=== PATIENT | female | born 1985 | race Caucasian/White ===

== ENCOUNTER 2019-08-24 10:26 | Day surgery (SDC) | payer OTHER ==
[2019-08-23 10:52] VITALS: BMI 35.4
[~2019-08-24 10:26] MED LIST: Dexamethasone 20 MG/5 ML VIAL ONE; Lidocaine 1% PF 5 ML VIAL ONE; Ondansetron PF 4 MG/2 ML Vial ONE; PROPOFOL 200 MG/20 ML VIAL ONE; Rocuronium Bromide 10 MG/ML (10ML VIAL) ONE; Succinylcholine Chloride 20 MG/ML 10 ml SYRINGE FS ONE
[2019-08-24] MEDS ORDERED: Fentanyl 100 MCG/2 ML VIAL ONE ×2 (11:04→16:35)
[2019-08-24] MEDS ORDERED: Lidocaine 1% (PF) 30 ML VIAL ONE ×2 (11:49→15:22)
[2019-08-24] MEDS ORDERED: Famotidine/PF 20 mg/2ml Vial ONE (12:01)
[2019-08-24 12:05] LABS: #Basophils 0.1 thou/uL (0.0-0.2); #Eosinphils 0.1 thou/uL (0.0-0.7); #Lymphocytes 2.8 thou/uL (1.20-3.40); #Monocytes 0.5 thou/uL (0.11-0.59); #Neutrophils 7.2 thou/uL (1.40-6.50); %Basophils 0.5 % (0.0-1.0); %Eosinophils 1.3 % (0.0-10.0); %Lymphocytes 26.1 % (21.0-51.0); %Monocytes 4.6 % (0.0-10.0); %Neutrophils 67.4 % (42.0-75.0); Hemoglobin 12.8 g/dL (12.0-16.0); Mean Corpuscular Hemoglobin 30.5 pg (27.0-31.0); Mean Corpuscular Volume 89.5 fL (78.0-98.0); Mean Platelet Volume 7.9 fL (7.4-10.4); Platelet Count 234 thou/uL (130-400); RBC Distribution Width 12.3 % (11.5-14.5); Red Blood Cell (RBC) Count 4.21 mill/uL (4.20-5.40); White Blood Cell (WBC) Count 10.7 thou/uL (4.8-10.8)
[2019-08-24] MEDS ORDERED: Promethazine HCl 25 MG/ML VIAL ONE (16:51)
--- NOTE | 2019-08-25 02:16 | OP ---
DATE OF PROCEDURE: 08/24/2019 PREOPERATIVE DIAGNOSES: 1. History of cervical incompetence. 2. Intrauterine at 15 weeks. POSTOPERATIVE DIAGNOSES: 1. History of cervical incompetence. 2. Intrauterine at 15 weeks. PROCEDURES PERFORMED: Cervical cerclage, Messina style with Mersilene tape. ANESTHESIA: General. ESTIMATED BLOOD LOSS: Less than 50 mL. COMPLICATIONS: None. SPECIMENS: None. COUNTS: Correct. DESCRIPTION OF PROCEDURE: Ms. Molly Yang is a 33-year-old female, G4, P0 female with an intrauterine at approximately 15 weeks gestation with a history of cervical incompetence as evidenced by a 19-week loss, but the patient presenting with leakage of fluid and already cervical dilation. The patient was counseled to the benefits and risks of a cervical cerclage, including the benefit of prolonged , risk of premature rupture of membranes, labor, damage to bowel or bladder, bleeding, and the patient expressed understanding of these potential complications and benefits and desired to proceed. The patient was taken to the operating room and placed under general anesthesia without difficulty. She was placed in a dorsal lithotomy position in [facility]. She was prepped and draped in normal sterile fashion. Attention was placed vaginally with a weighted vaginal speculum and a Alfredo and two right-angle retractors to identify the cervix. Cervix was noted to be very well supported and not easily accessible. After evaluation of the cervix, the cervix was noted to be closed and firm. The vesicovaginal reflection was identified. The visible portion of the cervix was measured and visually the markings were made mentally as to where the cerclage should be placed. A double needled Mersilene tape was then used with suture being placed from 5 o'clock to 4 o'clock, 10 o'clock to 11 o'clock, 1 o'clock to 2 o' clock and 4 o'clock to 5 o'clock with the knot placed at 12 o'clock. A suture was then cinched down for good closure, and air knot was created for later visualization. Of note, during the case, at the time of the initial stitch, there was an inadvertent stick through the vaginal wall posteriorly with the misidentification of it being the lateral side of the cervix. When this was identified, the suture was removed. At the end of the case, a digital evaluation of the rectum was made with some concern question whether this was placed in the rectum with a finger digitally identifying the wall of the rectum and a retraction being used to identify the cervix and the location of this bulge in the posterior vagina. It was clearly identified that the rectum was not within the niko of the previous malplaced suture. With that confirmation made, the procedure was completed and the patient was taken out of lithotomy position and extubated and taken to recovery room in stable condition. Job ID: [id number] MTDD
== END 2019-08-24 18:30 | disposition home or self-care (01) ==
LOC: SDC 10:26
PROVIDERS: ATTEND Obstetrics & Gynecology
PROC: 0UVC7ZZ Restriction of Cervix, Via Natural or Artificial Opening (ICD-10-PCS; principal; 2019-08-24)
DX: O34.32 Maternal care for cervical incompetence, second trimester (principal); O09.292 Supervision of pregnancy with other poor reproductive or obstetric history, second trimester; Z3A.15 15 weeks gestation of pregnancy
CPT/HCPCS: 85025; J1100; J2001; J2405; J2550; J2704; J3010; S0028

== ENCOUNTER 2019-09-17 22:00 | Day surgery (SDC) | payer OTHER ==
[2019-09-17 22:42] VITALS: BMI 38.4
[2019-09-17] MEDS ORDERED: hydrALAZINE 20 MG/ML VIAL SLOW IVP PRN (23:18)
[2019-09-17 23:52] LABS: Bilirubin Negative (Negative); Blood, Urine Trace (Negative); Clarity Clear (Clear); Glucose, Urine (Dipstick) Normal (Negative); Leukocyte Negative Leu/uL (Negative); Nitrite Negative (Negative); Protein, Urine (Dipstick) 20 mg/dL (Neg-Trace); RBC/HPF 0-3 HPF (0-3); Squamous Epithelial 0-3 HPF (0-3); Urobilinogen Normal mg/dL (Less than 2)
[2019-09-17 23:55] LABS: Bacteria/HPF 1+ HPF (None Seen)
[2019-09-17 23:56] LABS: Urine Culture Reflex Yes Yes
--- NOTE | 2019-09-18 03:57 | PDOC.FPROB ---
FMR OB H&P: HPI - History of Present Illness Chief Complaint: Low back pain Indentification: 33 year old at 19.2 wks History of Present Illness: 33 year old at 19.2 wks presents with lower back pain for the last two days. She states that it is consistent pain in the mid lower back. The pain is positional, and certain positions do seem to relieve the pain. Patient has had several early second trimester losses. Her last she attempted IVF. This was conceived naturally. Patient had cerclage placed in July. She also started Marielos injections 3 weeks ago. Patient denies vaginal bleeding , vaginal discharge, LoF, or contractions. She states that this pain does not feel like the PTL pain she has experienced in the past. Patient does have a history of recurrent UTI's. Patient endorses movement. Primary Care Physician: William FMR OB H&P: Current - Care : 4 Para: 0030 Gestational age: 19.2 wks Due date: 02/10/2020 FMR OB H&P: History - Past Medical History PMH: Denies any significant PMH - OB History OB History: SAB x3 Cerclage placed in July due to recurrent early second trimester losses Hx PTL on Marielos injections Hx UTI's - [employer] History [employer] History: Denies history of STD's - Surgical History Sx History: Denies - Social History Social History: Denies alcohol, tobacco, or drug use FMR OB H&P: Medications - Current Home Medications: Medication Instructions Recorded Confirmed Type Vit37/Iron/Folic Acid 1 tab PO DAILY 08/23/19 08/23/19 History [Prenata Chewable Tablet] Hydroxyprogesterone Caproat/Pf 09/17/19 History [Solomon 275 mg/1.1 ml Autoinjct] Nitrofurantoin Monohyd/M-Cryst 100 mg PO BID 5 Days #10 capsule 09/18/19 Rx [Macrobid 100 mg Capsule] Allergies/Adverse Reactions: Allergies Allergy/AdvReac Type Severity Reaction Status Date / Time No Known Allergies Allergy Verified 09/17/19 22:43 FMR OB H&P: ROS - Review of Systems General: denies: fever/chills, weight/appetite/sleep changes, night sweats ENT: denies: nasal congestion, rhinorrhea, sore throat Cardiovascular: denies: chest pain, palpitation, edema Respiratory: denies: cough, congestion, shortness of breath Gastrointestinal: denies: abdominal pain, nausea, vomiting, diarrhea Genitourinary (Female): denies: dysuria, vaginal discharge, vaginal bleeding, contractions Musculoskeletal: reports: pain (lower back). denies: tenderness Neurologic: denies: numbness, syncope Integumentary: denies: itching, rash Hematologic/Lymphatic: denies: prolonged or excessive bleeding Psychological: denies: depression, anxiety FMR OB H&P: Vital Signs - Maternal Vital signs: BP 121/73 Pulse 98 RR 18 Temp: 98.1 F - Heart Tones Baseline: 140 FMR OB H&P: Physical Exam - Physical Exam General: NAD, awake, alert and oriented HEENT: MMM, grossly normal vision, grossly normal hearing Heart: RRR, no murmurs/rubs/gallops General: CTAB, no respiratory distress Abdomen: soft, gravid, non-tender Musculoskeletal: pulses present, FROM in all four extremities Neurological: no tremor, no focal deficit Skin: no rash, capillary refill <2 seconds Lymphatic: no unusual bruising or bleeding, no purpura Psychiatric: intact recent and remote memory, good judgement and insight, normal mood and affect FMR OB H&P: Results - Labs Lab results: Laboratory Results - last 24 hr 09/17/19 23:35 Urine Color Light-Yellow Urine Clarity Clear Urine pH 5.5 Ur Specific [place] 1.025 Urine Protein 20 Urine Glucose (UA) Normal Urine Ketones 60 A Urine Blood Trace A Urine Nitrite Negative Urine Bilirubin Negative Urine Urobilinogen Normal Ur Leukocyte Esterase Negative Urine RBC 0-3 Urine WBC 4-6 A Ur Squamous Epith Cells 0-3 Urine Bacteria 1+ A Urine Culture Reflexed Yes A FMR OB H&P: A/P - Problem List (1) Status: Acute Qualifiers: Weeks of gestation: 19 weeks Qualified Code(s): Z3A.19 - 19 weeks gestation of (2) History of labor Status: Acute Code(s): Z87.51 - PERSONAL HISTORY OF PRE-TERM LABOR Disposition: 33 year old at 19.2 wks Low back pain likely 2/2 UTI and MSK pain - Straight cath UA positive for trace blood, 4-6 WBC, 1+ bacteria; does not appear contaminated - Reflex culture pending - Will send patient home with macrobid 100 mg BID x5 days - Given back pain resolves with various positions, there is likely an MSK component, this was discussed with patient Hx PTL - Patient with cerclage in place since 15 wks - Marielos injections qwk Dispo: D/C home with return precautions. Will notify patient if culture results indicate need for different antibiotic. Patient voiced understanding. Discussion: Date/Time: 09/18/19 4914 This H&P was discussed with Dr. Cruz who agrees with the above documentation and plan. Signature: Bisi Miranda DO PGY-3 Addendum - Attending - Attending Attestation Date/Time: 09/18/19 1873 I personally evaluated the patient and discussed the management with Dr. Miranda. I agree with the History, Examination, Assessment and Plan documented above.
[2019-09-18] MEDS ORDERED: FLU VACC QS2019-20(6MOS UP)/PF 60 MCG/0.5 ML SYRINGE IM ONE (09:00)
== END 2019-09-18 00:30 | disposition home or self-care (01) ==
LOC: L&D/OP 22:00
PROVIDERS: ATTEND Family Medicine
DX: O99.89 Other specified diseases and conditions complicating pregnancy, childbirth and the puerperium (principal); M54.5 Low back pain; O34.32 Maternal care for cervical incompetence, second trimester; O09.212 Supervision of pregnancy with history of pre-term labor, second trimester; Z3A.19 19 weeks gestation of pregnancy; Z79.899 Other long term (current) drug therapy
CPT/HCPCS: 81001; 87086; 99282

== ENCOUNTER 2019-09-30 08:35 | Outpatient (CLI) | payer OTHER ==
--- NOTE | 2019-09-30 09:36 | ULT ---
ULTRASOUND OB COMPLETE STANDARD: History: Anatomy scan. Comparison: None. Findings: Real-time grayscale, color, and spectral analysis of the gravid uterus was performed via transabdomin al approach. Single viable intrauterine with average ultrasound age 21 weeks 0 day with estimated date o f delivery February 10, 2020. The presentation is vertex and the placenta is anterior. No placenta previa. heart rate documented at 153 bpm. Cervix is closed and measures 4.6 cm in length. Biometry: Biparietal diameter: 4.9 cm, 20 weeks 6 days Head circumference: 19.13 cm, 21 weeks 3 days Abdominal circumference: 15.48 cm, 20 weeks 5 days Femur length: 3.43 cm, 20 weeks 6 days Anatomy: Head, cerebellum, cisterna magna, lateral ventricles, 4-chamber heart, stomach, kidneys, cor d insertion, bladder, spine, lips/nose, upper extremities, lower extremities, 3-vessel cord are all normal. Amniotic fluid index: 23 cm. Estimated weight: 13 ounces, 33rd percentile. Impression: Normal single viable intrauterine as described. Transcribed Date/Time: 09/30/2019 9:59 AM
== END 2019-09-30 08:36 | disposition home or self-care (01) ==
LOC: BICULT 08:35
PROVIDERS: ATTEND Family Medicine
DX: O09.522 Supervision of elderly multigravida, second trimester (principal); Z3A.21 21 weeks gestation of pregnancy
CPT/HCPCS: 76805

== ENCOUNTER 2020-01-09 22:50 | Day surgery (SDC) | payer OTHER ==
[2020-01-09 23:35] VITALS: BMI 37.8
[2020-01-09] MEDS ORDERED: hydrALAZINE 20 MG/ML VIAL SLOW IVP PRN (23:45)
[2020-01-09] MEDS ORDERED: Lactated Ringer's 1,000 ML IV SCH (23:59)
[2020-01-09] MEDS ORDERED: hydrOXYzine Pamoate 25 mg Capsule PO SCH (23:59)
--- NOTE | 2020-01-10 00:08 | HP ---
TIME: 2345. LOCATION: Labor and Delivery Triage in [facility]. Patient of Dr. Thomas. CHIEF COMPLAINT: Possible contractions at an EGA of 35 weeks and 3 days. HISTORY OF PRESENT ILLNESS: This is a 34-year-old, G4, P0 with one loss at 19 weeks, who has a cerclage in place and it is scheduled to be removed next week in the office. She presents with possible contractions, but denies vaginal bleeding or leakage of fluid. Contractions are on and off and kind of irregular but at their highest frequency about every 5 minutes. She denies any recent trauma or other issues. REVIEW OF SYSTEMS: Complete review of systems was checked and is otherwise negative unless specified in the HPI. PAST MEDICAL HISTORY: Negative. SURGERIES: Cerclage. ALLERGIES: NONE. SOCIAL HISTORY: Noncontributory. PHYSICAL EXAMINATION: VITAL SIGNS: Blood pressure is 131/72, pulse is 77, temperature is 98.2, O2 saturation is 100%. GENERAL: She is in no acute distress and is resting comfortably. ABDOMEN: Soft and nontender without palpable contractions. PELVIS: Cervical exam is deferred in an attempt to not disrupt the cerclage (no active contractions noted). Perineal inspection shows no vaginal bleeding or leakage of fluid. On monitor, heart tones are 130s to 140s and reactive without pathological deceleration. There maybe some irritability but no real contraction pattern and no distinct contractions noted. Interventions ordered. I have ordered 1 L of LR. ASSESSMENT: This is a patient who is in the late interval, who is at 35 weeks and 3 days with a cerclage in place with possible Parmjit Villarreal contractions. I do not believe she is in active labor at this time. PLAN: 1. We will do IV hydration. 2. I have ordered p.o. Vistaril as therapeutic rest. 3. Cervical exam is deferred at this time as there was no bleeding and no evidence of true active contraction pattern. Job ID: [id number]
== END 2020-01-10 01:05 | disposition home or self-care (01) ==
LOC: L&D/OP 22:50
PROVIDERS: ATTEND Family Medicine
DX: O47.03 False labor before 37 completed weeks of gestation, third trimester (principal); O34.33 Maternal care for cervical incompetence, third trimester; Z3A.35 35 weeks gestation of pregnancy
CPT/HCPCS: 96360; 96361; 99282; Q0177

== ENCOUNTER 2020-01-10 10:57 | Outpatient (CLI) | payer OTHER ==
[2020-01-11 13:49] LABS: SARS-CoV-2 MS2 Positive; SARS-CoV-2 N Gene Negative; SARS-CoV-2 S Gene Negative; SARS-CoV-2 orf1ab Negative
== END 2020-01-10 10:58 | disposition home or self-care (01) ==
LOC: SCSLAB 10:57
PROVIDERS: ATTEND Family Medicine
DX: Z01.812 Encounter for preprocedural laboratory examination (principal); Z11.59 Encounter for screening for other viral diseases
CPT/HCPCS: 87635; U0003

== ENCOUNTER 2020-01-13 16:07 | Day surgery (SDC) | payer OTHER ==
[2020-01-13] MEDS ORDERED: Butorphanol Tartrate 1 MG/ML VIAL IM PRN (21:55)
== END 2020-01-13 22:25 | disposition home health service (06) ==
LOC: L&D/OP 16:07
PROVIDERS: ATTEND Family Medicine
PROC: 0UCC7ZZ Extirpation of Matter from Cervix, Via Natural or Artificial Opening (ICD-10-PCS; principal; 2020-01-13)
DX: O34.33 Maternal care for cervical incompetence, third trimester (principal); O09.523 Supervision of elderly multigravida, third trimester; Z3A.36 36 weeks gestation of pregnancy
CPT/HCPCS: 96372; 99284; J0595

== ENCOUNTER 2020-01-31 09:20 | Outpatient (CLI) | payer OTHER ==
[2020-02-01 14:02] LABS: SARS-CoV-2 MS2 Positive; SARS-CoV-2 N Gene Negative; SARS-CoV-2 S Gene Negative; SARS-CoV-2 orf1ab Negative
== END 2020-01-31 09:21 | disposition home or self-care (01) ==
LOC: LABSCS 09:20
PROVIDERS: ATTEND Family Medicine
DX: Z01.812 Encounter for preprocedural laboratory examination (principal); Z11.59 Encounter for screening for other viral diseases
CPT/HCPCS: 87635; U0003

== ENCOUNTER 2020-02-03 04:14 | Inpatient (IN) | payer MEDICAID, OTHER, SELFPAY ==
[2020-02-03] MEDS ORDERED: Promethazine HCl 25 MG/ML VIAL IM PRN ×3 (04:40→17:40)
[2020-02-03] MEDS ORDERED: Carboprost 250 MCG/ML AMP IM PRN (04:40)
[2020-02-03] MEDS ORDERED: Ibuprofen 800 MG TAB PO PRN (04:40)
[2020-02-03] MEDS ORDERED: NS / Oxytocin 40 units/1000ml 1,000 ML IV PRN (04:40)
[2020-02-03] MEDS ORDERED: Ondansetron PF 4 MG/2 ML Vial IVP PRN ×3 (04:40→17:40)
[2020-02-03] MEDS ORDERED: Methylergonovine 0.2 MG/ML VIAL IM PRN (04:40)
[2020-02-03] MEDS ORDERED: Lidocaine 1% (PF) 30 ML VIAL SC PRN (04:40)
[2020-02-03] MEDS ORDERED: Diphenoxylate HCl/Atropine Tablet PO PRN (04:40)
[2020-02-03] MEDS ORDERED: hydrALAZINE 20 MG/ML VIAL SLOW IVP PRN ×2 (04:40→17:40)
[2020-02-03] MEDS ORDERED: Misoprostol 200 MCG TAB PR PRN (04:40)
[2020-02-03] MEDS ORDERED: Butorphanol Tartrate 1 MG/ML VIAL SLOW IVP PRN (04:40)
[2020-02-03] MEDS ORDERED: HYDROcodone/Acetaminophen 5/325 mg Tablet PO PRN ×3 (04:40→17:40)
[2020-02-03] MEDS ORDERED: NS w/ Oxytocin 10 units 500 ML IV SCH ×2 (05:00)
[2020-02-03] MEDS ORDERED: Penicillin G Potassium 5 MILL.UNITS in Sodium Chloride 0.9% 100 ML IVPB SCH (05:00)
[2020-02-03] MEDS ORDERED: Misoprostol 100 MCG TAB PO SCH (05:00)
[2020-02-03 05:06] VITALS: BMI 39.6
[2020-02-03] MEDS: Lactated Ringer's 1,000 ML IV SCH ×2 (05:49→14:35)
[2020-02-03 06:03] LABS: Hemoglobin 9.6 g/dL (12.0-16.0); Mean Corpuscular HGB CONC 31.2 g/dL (32.0-36.0); Mean Corpuscular Hemoglobin 22.3 pg (27.0-31.0); Mean Corpuscular Volume 71.6 fL (78.0-98.0); Mean Platelet Volume 11.2 fL (7.4-10.4); Platelet Count 231 thou/uL (130-400); RBC Distribution Width 17.7 % (11.5-14.5); Red Blood Cell (RBC) Count 4.29 mill/uL (4.20-5.40); White Blood Cell (WBC) Count 7.2 thou/uL (4.8-10.8)
[2020-02-03 06:40] LABS: Syphilis Antibody Nonreactive (Nonreactive); Syphilis Antibody Index 0.04 S/CO (<1.00 Non-Reactive)
[2020-02-03 06:43] LABS: HBSAg Index 0.14 S/CO (0-0.99); Hep B Surf Ag Non-Reactive S/CO (NonReactive)
[2020-02-03] MEDS ORDERED: Fentanyl 4 mcg/Bup 0.1% Cadd 100 ML ONE ×2 (07:57→14:17)
[2020-02-03] MEDS ORDERED: Fentanyl 100 MCG/2 ML VIAL ONE (08:15)
[2020-02-03] MEDS ORDERED: EPHEDRINE 25 MG/5 ML SYRINGE SLOW IVP PRN (08:47)
[2020-02-03] MEDS ORDERED: Naloxone HCl 0.4 mg/ml Vial IVP PRN ×2 (08:47)
[2020-02-03] MEDS ORDERED: Lactated Ringer's 500 ML IV PRN (08:47)
[2020-02-03] MEDS ORDERED: Acetaminophen 325 MG TAB PO PRN (08:47)
[2020-02-03] MEDS ORDERED: diphenhydrAMINE 50 MG/ML VIAL IVP PRN (08:47)
[2020-02-03] MEDS ORDERED: Fentanyl 4 mcg/Bupivacaine 0.1% Cassette 100 ML EPIDURAL SCH (09:00)
[2020-02-03] MEDS ORDERED: Communication Order-Pharmacy FS SCH (09:00)
[2020-02-03] MEDS: Penicillin G 2.5 MILL.units 2.5 MILL.UNITS in Premix Bag 1 BAG IVPB SCH ×3 (10:30→17:11)
[2020-02-03] MEDS ORDERED: NS / Oxytocin 40 units/1000ml 1,000 ML ONE (14:16)
[2020-02-03] MEDS ORDERED: Lidocaine 1% (PF) 30 ML VIAL ONE (14:16)
[2020-02-03] MEDS ORDERED: Lanolin Ointment 7 GM TUBE TOP PRN (17:40)
[2020-02-03] MEDS ORDERED: Bisacodyl 10 MG SUPP PR PRN (17:40)
[2020-02-03] MEDS ORDERED: Milk Of Magnesia 30 ML UDCUP PO PRN (17:40)
[2020-02-03] MEDS ORDERED: Benzocaine-Menthol 82.5 ML CAN TOP PRN (17:40)
[2020-02-03] MEDS ORDERED: diphenhydrAMINE 25 MG CAP PO PRN (17:40)
[2020-02-03] MEDS ORDERED: Adacel (T-DAP) 0.5 ML SYRINGE IM ONE (17:40)
[2020-02-03] MEDS ORDERED: Ferrous Sulfate 325 MG TAB PO SCH (17:40)
[2020-02-03] MEDS ORDERED: NS / Oxytocin 40 units/1000ml 1,000 ML IV SCH (17:40)
[2020-02-03] MEDS: Ibuprofen 800 MG TAB PO SCH (20:37)
[2020-02-03] MEDS: Docusate Calcium (SURFAK) 240 MG CAP PO SCH (20:37)
[2020-02-04] MEDS ORDERED: Sodium Chloride 0.9% 10 ML ONE (01:15)
[2020-02-04] MEDS: Ibuprofen 800 MG TAB PO SCH ×3 (04:54→22:20)
[2020-02-04 05:39] LABS: Hemoglobin 8.4 g/dL (12.0-16.0); Mean Corpuscular HGB CONC 31.3 g/dL (32.0-36.0); Mean Corpuscular Hemoglobin 22.8 pg (27.0-31.0); Mean Corpuscular Volume 72.9 fL (78.0-98.0); Mean Platelet Volume 10.8 fL (7.4-10.4); Platelet Count 212 thou/uL (130-400); RBC Distribution Width 17.7 % (11.5-14.5); Red Blood Cell (RBC) Count 3.68 mill/uL (4.20-5.40); White Blood Cell (WBC) Count 10.7 thou/uL (4.8-10.8)
[2020-02-04] MEDS: Prenatal Vitamin 1 TAB PO SCH (07:51)
[2020-02-04] MEDS: Docusate Calcium (SURFAK) 240 MG CAP PO SCH ×2 (07:51→22:20)
[2020-02-04] MEDS: Ferrous Sulfate 325 MG TAB PO SCH ×2 (07:52→18:54)
[2020-02-05] MEDS: Ibuprofen 800 MG TAB PO SCH (06:58)
[2020-02-05 08:59] VITALS: BP 122/66; TEMP 98.2
[2020-02-05] MEDS: Docusate Calcium (SURFAK) 240 MG CAP PO SCH (10:00)
[2020-02-05] MEDS: Ferrous Sulfate 325 MG TAB PO SCH (10:00)
[2020-02-05] MEDS: Prenatal Vitamin 1 TAB PO SCH (10:00)
--- NOTE | 2020-02-07 06:42 | PQF ---
CLINICAL DOCUMENTATION CLARIFICATION FORM: Dear : Papito Thomas Date / Time: 02/07/20 06 Please exercise your independent, professional judgment in responding to the clarification form. Clinical indicators are provided on the bottom of this form for your review Please check appropriate box(es): [ ] Associated Diagnosis: Acute Blood loss Anemia [ ] Abnormal laboratory findings not clinically significant [ ] Other diagnosis [ ] Unable to determine In addition, please specify: Present on Admission (POA): [ ] Yes [ ] No [ ] Unable to determine Physician Signature: Date/Time: For continuity of documentation, please document condition throughout progress notes and discharge summary. Thank You. To be completed by CDI/Coding staff for physician review: Present Clinical Indicators - Signs / Symptoms / Labs Results and Location in Medical Record [X] RBC 4.29, Hgb 9.6, 30.7 Laboratory Hematology 02/02 [X] RBC 3.68, Hgb 8.4, Hct 26.8 Laboratory Hematology 02/03 [X] BP 131/94, Pulse 107, Resp 16, Temp 98.3 Vital signs 02/02 [X] EBL 275 ml L&D summary p1 Present Risk Factors Results and Location in Medical Record [X] 39 weeks IUP L&D summary p1 [X] Second degree laceration L&D summary p1 [X] GBS positive L&D summary p1 [X] s/p with episiotomy L&D summary p1 Present Treatments Results and Location in Medical Record [X] Series of Hct and Hgb labs Laboratory Hematology 02/03 [X] Ferrous Sulfate 325 mg SEP 24 [X] Lactated Ringers 1L SEP 24 CDS/Learning Support Services Director Signature: Mariana Pond Phone #: [phone] Date/Time: 02/07/20640 This is a permanent part of the Medical Record [facility]
== END 2020-02-05 12:28 | disposition home or self-care (01) | DRG 807 ==
LOC: L&D 04:14 → 3SW 19:00
PROVIDERS: ADMIT Family Medicine; ATTEND Family Medicine
PROC: 10E0XZZ Delivery of Products of Conception, External Approach (ICD-10-PCS; principal; 2020-02-03)
PROC: 0KQM0ZZ Repair Perineum Muscle, Open Approach (ICD-10-PCS; 2020-02-03)
PROC: 0W8NXZZ Division of Female Perineum, External Approach (ICD-10-PCS; 2020-02-03)
PROC: 10907ZC Drainage of Amniotic Fluid, Therapeutic from Products of Conception, Via Natural or Artificial Opening (ICD-10-PCS; 2020-02-03)
PROC: 3E0P7VZ Introduction of Hormone into Female Reproductive, Via Natural or Artificial Opening (ICD-10-PCS; 2020-02-03)
PROC: 3E033VJ Introduction of Other Hormone into Peripheral Vein, Percutaneous Approach (ICD-10-PCS; 2020-02-03)
DX: O34.33 Maternal care for cervical incompetence, third trimester (principal); Z37.0 Single live birth; Z3A.39 39 weeks gestation of pregnancy; O70.1 Second degree perineal laceration during delivery
CPT/HCPCS: 36415; 51702; 85027; 86780; 86850; 86900; 86901; 87340; J2001; J2540; J2590; J3010; J3490

== ENCOUNTER 2020-10-24 08:45 | Outpatient (CLI) | payer OTHER | END 2020-10-24 08:46 | disposition home or self-care (01) | LOC: BICULT 08:45 | PROVIDERS: ATTEND Family Medicine | DX: O09.522 Supervision of elderly multigravida, second trimester (principal); O32.1XX0 Maternal care for breech presentation, not applicable or unspecified; Z3A.20 20 weeks gestation of pregnancy | CPT/HCPCS: 76805 ==

== ENCOUNTER 2021-01-19 08:17 | Outpatient (CLI) | payer OTHER | END 2021-01-19 08:18 | disposition home or self-care (01) | LOC: BICULT 08:17 | PROVIDERS: ATTEND Family Medicine | DX: O09.523 Supervision of elderly multigravida, third trimester (principal); Z3A.33 33 weeks gestation of pregnancy | CPT/HCPCS: 76816; 93975 ==

== ENCOUNTER 2021-05-16 02:32 | Emergency (ER) | payer SELFPAY ==
[2021-05-16 04:54] LABS: Hemoglobin 12.7 g/dL (12.0-16.0); Mean Corpuscular HGB CONC 31.8 g/dL (32.0-36.0); Mean Corpuscular Hemoglobin 25.4 pg (27.0-31.0); Mean Platelet Volume 6.3 fL (7.4-10.4); Platelet Count 259 thou/uL (130-400); RBC Distribution Width 21.8 % (11.5-14.5); Red Blood Cell (RBC) Count 4.99 mill/uL (4.20-5.40)
[2021-05-16 05:11] LABS: #Basophils 0.1 thou/uL (0.0-0.2); #Eosinphils 0.2 thou/uL (0.0-0.7); #Lymphocytes 3.1 thou/uL (1.20-3.40); #Monocytes 0.3 thou/uL (0.11-0.59); #Neutrophils 3.3 thou/uL (1.40-6.50); %Basophils 1.4 % (0.0-1.0); %Eosinophils 2.8 % (0.0-10.0); %Lymphocytes 44.8 % (21.0-51.0)
[2021-05-16 05:17] LABS: ALT (SGPT) 39 U/L (8-55); AST (SGOT) 57 U/L (5-34); Albumin 4.2 g/dL (3.5-5.0); Alkaline Phosphatase 110 U/L (40-110); Anion Gap 16 mmol/L (10-20); BHCG - Serum Negative (NEGATIVE); BUN (Urea Nitrogen) 13 mg/dL (7.0-18.7); Bilirubin, Total 0.4 mg/dL (0.2-1.2); Calc. Creatinine Clearance 0 mL/min (70-130); Calcium 8.9 mg/dL (7.8-10.44); Carbon Dioxide 19 mmol/L (22-29); Chloride 109 mmol/L (98-107); Globulin 3.5 g/dL (2.4-3.5); Glucose 103 mg/dL (70-105); Lipase 76 U/L (8-78); Potassium 3.8 mmol/L (3.5-5.1); Pregs Control Background? CLEAR/WHITE (CLR/WHITE); Pregs Control Bar Appear? YES (CONTROL BAR); Protein, Total 7.7 g/dL (6.0-8.3); Sodium 140 mmol/L (136-145)
== END 2021-05-16 05:50 | disposition home or self-care (01) ==
LOC: ERS 02:32
DX: K80.20 Calculus of gallbladder without cholecystitis without obstruction (principal)
CPT/HCPCS: 76705; 80053; 83690; 84703; 85025

== ENCOUNTER 2025-04-11 06:47 | Emergency (ER) | payer MEDICAID ==
[2025-04-11] MEDS ORDERED: Ondansetron PF 4 MG/2 ML Vial ONE (07:12)
[2025-04-11 07:30] LABS: #Basophils 0.07 10x3/uL (0.0-0.2); #Eosinophils 0.30 10x3/uL (0.0-0.7); #Monocytes 0.50 10x3/uL (0.11-0.59); #Neutrophils 5.60 10x3/uL (1.40-6.50); %Basophils 0.7 % (0.0-1.0); %Eosinophils 3.1 % (0.0-10.0); %Lymphocytes 32.1 % (21.0-51.0); %Monocytes 5.2 % (0.0-10.0); %Neutrophils 58.7 % (42.0-75.0); Hematocrit 42.4 % (36.0-47.0); Hemoglobin 13.4 g/dL (12.0-16.0); Mean Corpuscular Hemoglobin 26.2 pg (27.0-31.0); Mean Corpuscular Volume 82.8 fL (78.0-98.0); Platelet Count 299 10x3/uL (130-400); Red Blood Cell (RBC) Count 5.12 mill/uL (4.20-5.40); White Blood Cell (WBC) Count 9.56 10x3/uL (4.8-10.8)
[2025-04-11 07:46] LABS: Bacteria/HPF None Seen HPF (None Seen); CAUTI Indications for Culture Pelvic or flank pain; Glucose, Urine (Dipstick) Normal (Negative); Leukocyte Negative Leu/uL (Negative); Protein, Urine (Dipstick) Negative (Neg-Trace); RBC/HPF Greater than 50 HPF (0-3); Specific Gravity, Urine 1.030 (1.002-1.036)
[2025-04-11 07:47] LABS: ALT (SGPT) 35 U/L (Less than 34); AST (SGOT) 36 U/L (11-34); Albumin 4.1 g/dL (3.1-4.5); Alkaline Phosphatase 83 U/L (40-110); Anion Gap 14 mmol/L (10-20); BHCG - Serum Negative (NEGATIVE); BUN (Urea Nitrogen) 16 mg/dL (7.0-18.7); Bilirubin, Total 0.6 mg/dL (0.3-1.2); Calc. Creatinine Clearance 0 mL/min (70-130); Calcium 8.9 mg/dL (7.8-10.44); Carbon Dioxide 19 mmol/L (22-29); Chloride 109 mmol/L (98-107); Globulin 3.7 g/dL (2.4-3.5); Glucose 105 mg/dL (70-105); Lipase 51 U/L (8-78); Potassium 3.8 mmol/L (3.5-5.1); Pregs Control Background? CLEAR/WHITE (CLR/WHITE); Pregs Control Bar Appear? YES (CONTROL BAR); Sodium 138 mmol/L (136-145)
[2025-04-11 07:52] LABS: Urine Culture Reflex No No
== END 2025-04-11 08:40 | disposition home or self-care (01) ==
LOC: ERS 06:47
DX: K80.20 Calculus of gallbladder without cholecystitis without obstruction (principal); R11.2 Nausea with vomiting, unspecified
CPT/HCPCS: 76705; 80053; 81001; 83690; 84703; 85025; 96361; 96374; 96375